=== PATIENT | male | born 1990 ===

== ENCOUNTER 2021-09-15 00:43 | Emergency (ER) | payer OTHER ==
[~2021-09-15] VITALS: Ht 177.8 cm; Wt 84.1 kg
[2021-09-15 00:48] VITALS: BP 155/80; PULSE 75; TEMP 97.2
[2021-09-15 01:02] LABS: COLLECTION METHOD CLEAN CATCH
[2021-09-15 01:14] LABS: PH 6 (5-8); SQUAMOUS EPITHELIAL None Seen /hpf (0-10); URINE APPEARANCE Clear (CLEAR/HAZY); URINE BACTERIA None Seen /hpf (NONE SEEN); URINE BILIRUBIN Negative (NEGATIVE); URINE BLOOD Negative (NEGATIVE); URINE COLOR Straw (YELLOW); URINE GLUCOSE Negative (NEGATIVE); URINE KETONE Negative (NEGATIVE); URINE LEUKOCYTE ESTERASE Negative (NEGATIVE); URINE NITRATE Negative (NEGATIVE); URINE PROTEIN(semi-quant) Negative (NEGATIVE); URINE RBC 0-2 /hpf (0-2); URINE UROBILINOGEN Negative (NEGATIVE)
[2021-09-15] MEDS ORDERED: FLEXERIL 1010 MG/TAB PO (01:21)
[2021-09-15] MEDS ORDERED: NAPROSYN500 MG PO (01:21)
== END 2021-09-15 01:26 | disposition home or self-care (01) ==
LOC: COL.ER 00:43
PROVIDERS: Emergency Medicine
DX: M54.6 Pain in thoracic spine (principal); Z79.1 Long term (current) use of non-steroidal anti-inflammatories (NSAID)